=== PATIENT | male | born 1980 | race Caucasian/White ===

== ENCOUNTER → 2019-05-09 08:54 | Outpatient (BNVA) | payer MEDICARE, SELFPAY | PROVIDERS: Family Provider Nurse Practitioner Family; Visit Provider Nurse Practitioner Family | DX: K92.1 Melena (principal) | CPT/HCPCS: G0328 ==

== ENCOUNTER 2019-05-17 07:12 | Day surgery (SDC) | payer MEDICARE, SELFPAY ==
[2019-05-17 07:59] VITALS: BP 119/73; PULSE 59; RESP 18; TEMP 36.3; O2SAT 98
[2019-05-17 08:20] VITALS: BMI 31.0
--- NOTE | 2019-05-17 08:54 | P.ANES_ITS ---
Pre-Anesthetic Assessment Pre-Anesthetic Assessment: Height/Weight: Height 1.75 m Weight 95.254 kg Temp Pulse Resp BP Pulse Ox 97.3 F L 59 L 18 119/73 98 05/17/19 07:59 05/17/19 07:59 05/17/19 07:59 05/17/19 07:59 05/17/19 07:59 Preop Diagnosis: rectal bleeding, Nausea Proposed Procedure: Operation Date: 05/17/19 09:30 Proposed Procedures p EGD/COLON(Not Applicable) - Ren Rodrigues MD s Colonoscopy 47484,K62.5(Not Applicable) - Ren Rodrigues MD Familial anesthetic complications: denies Was Beta [place] taken within 24 hours: N/A Last intake: Intake Last Liquid Date 05/16/19 Last Liquid Time 20:40 Last Solid Date 05/15/19 Last Solid Time 20:30 Social: Social History: Tobacco (6 cig/day) Exam: Pre-Anes Outpt Exam: alert, oriented x 3, clear to auscultation bi laterally and regular rate & rhythm Airway: Submandibular: WNL Cervical ROM: WNL MP: 2 (full norton) Dentition: Other Additional comments: edentulous History/ROS: No significant history except as noted Pulmonary: Pulmonary: None reported CV/HEM: CV/HEM: Murmur (as a child) : : None reported Hepatic: Hepatic: None reported GI: GI: GERD Metabolic: Metabolic: None reported Musc/skel: Musc/skel: Lower Back Pain (sciatica; one steroid injection 2 years ago) Neuropsych: Neuropsych: Anxiety (PTSD) Anesthetic Plan: ASA status: II Anesthesia: Anesthesia Evaluation and MAC Risk of > 500 ml blood loss (7ml/kg in children): No PFSH Anesthesia PFSH: Medical History (Updated 05/10/19 @ 15:40 by Ren Rodrigues MD) Rectal bleeding (Acute) Social History Smoking and tobacco status: current every day smoker cigarettes Quit status (tobacco): has tried quititng Second hand smoke exposure: No Alcohol intake: current Alcohol intake frequency: holidays/special occasions only Alcohol type: beer Desire information about alcohol rehabilitation?: No Desire information about substance/drug rehabilitation?: No Adopted: No Caregiver/support person: Yes Lives independently: Yes Household members: spouse Housing: House Marital status: Number of children: 4 Highest education level completed: High School Graduate service: No Current occupational status: disabled Current occupational exposures/hazards: No Pets and animals: No History of recent travel: No Leisure activites: hunting and fishing Sexually active: Yes Current gender identity: Male Dena/Judaism: Zoroastrianism Special dena needs: No Agree to transfusion: Yes Financial difficulty paying for basics: Decline to Answer Data Anesthesia Cardiac Studies: No Data to Display
[2019-05-17] MEDS: sodium chloride 0.9% 1,000 ML 30 ML (09:03)
--- NOTE | 2019-05-17 09:30 | PM.HPUD ---
H&P update H&P Update: DATE OF SURGERY/PROCEDURE: 05/17/19 DATE H&P PERFORMED: 05/13/19 H&P UPDATE INFORMATION: H&P completed within last 30 days and No changes to prior documentation PRIMARY INDICATION FOR PROCEDURE: Bleeding per rectum PLANNED PROCEDURE: Operation Date: 05/17/19 09:30 Proposed Procedures p EGD/COLON(Not Applicable) - Ren Rodrigues MD s Colonoscopy 04671,K62.5(Not Applicable) - Ren Rodrigues MD Full H&P Perinent History: Medical/Surgical History: Medical History (Updated 05/10/19 @ 15:40 by Ren Rodrigues MD) Rectal bleeding (Acute) Family History: Family History (Updated 05/10/19 @ 15:24 by Lexy New RN) Grandmother Diabetes Other Cancer Denies family history of Anesthesia complication Bleeding disorder Social History: Social History Smoking and tobacco status: current every day smoker cigarettes Quit status (tobacco): has tried quititng Second hand smoke exposure: No Alcohol intake: current Alcohol intake frequency: holidays/special occasions only Alcohol type: beer Desire information about alcohol rehabilitation?: No Desire information about substance/drug rehabilitation?: No Adopted: No Caregiver/support person: Yes Lives independently: Yes Household members: spouse Housing: House Marital status: Number of children: 4 Highest education level completed: High School Graduate service: No Current occupational status: disabled Current occupational exposures/hazards: No Pets and animals: No History of recent travel: No Leisure activites: hunting and fishing Sexually active: Yes Current gender identity: Male Dena/Methodist: Anabaptist Special dena needs: No Agree to transfusion: Yes Financial difficulty paying for basics: Decline to Answer
[2019-05-17 09:50] VITALS: BP 95/75; PULSE 80; RESP 16; TEMP 36.2; O2SAT 91
--- NOTE | 2019-05-17 10:03 | ANE.PACU ---
 Inpatient post-anesthesia follow up: Airway intact: Yes Vital signs: Temperature 97.1 F Pulse Rate [Left A pical] 80 Respiratory Rate 16 Blood Pressure [Le ft Arm] 95/75 Pulse Oximetry 91 Oxygen Delivery Me thod Nasal Cannula Oxygen Flow Rate 3 Fraction of Inspir ed Oxygen Hydration adequate: Yes Nausea and vomiting: No Pain level: 0 Mental status: Baseline
[2019-05-17 10:06] VITALS: BP 111/73; PULSE 67; RESP 18; O2SAT 98
[2019-05-18 06:53] LABS: H. Pylori / CLO Test Positive
== END 2019-05-17 10:28 | disposition home or self-care (01) ==
PROVIDERS: Family Provider Nurse Practitioner Family; PCP Nurse Practitioner Family; Visit Provider Surgery
PROC: 0DJ08ZZ Inspection of Upper Intestinal Tract, Via Natural or Artificial Opening Endoscopic (ICD-10-PCS; CPT 43235; principal; 2019-05-17 09:30)
PROC: 0DJD8ZZ Inspection of Lower Intestinal Tract, Via Natural or Artificial Opening Endoscopic (ICD-10-PCS; CPT 45378; 2019-05-17 09:30)
DX: K92.1 Melena (principal); K21.9 Gastro-esophageal reflux disease without esophagitis; K29.70 Gastritis, unspecified, without bleeding; K29.80 Duodenitis without bleeding; Z83.3 Family history of diabetes mellitus; F17.210 Nicotine dependence, cigarettes, uncomplicated
CPT/HCPCS: 12345; 43239; 45378; 87077; 96365; J2704; J7030

== ENCOUNTER 2021-02-04 09:21 | Outpatient (CLI) | payer MEDICARE, SELFPAY ==
--- NOTE | 2021-02-04 09:26 | CT_ITS ---
WS: [id number] CT scan of the head, 02/04/2021 Clinical Data: R51.9 - Headache, unspecified Comparison: None. DLP: 992.[address] scans at [facility] use at least one of these dose optimization techniques: automated e xposure control; mA and/or kV adjustment per patient size (includes targeted exams where dose is matc hed to clinical indication); or iterative reconstruction. Findings: The ventricular system is normal without shift. No recent infarct or hemorrhage is seen. There are no abnormal intracerebral masses. The cerebellum and brainstem are not remarkable. Bony windows of the skull and skull base show no fractures or erosions. The mastoid air cells, internetworking technician al auditory canals, sella turcica, intraorbital contents, and paranasal sinuses are unremarkable. CT/CT head wo con* [id number] Impression: Negative CT scan of the head
== END 2021-02-04 09:22 | disposition home or self-care (01) ==
PROVIDERS: PCP Nurse Practitioner Family; Visit Provider Nurse Practitioner Family
DX: R51.9 Headache, unspecified (principal); G89.29 Other chronic pain
CPT/HCPCS: 70450; 80053; 85025; 86140

== ENCOUNTER 2021-11-19 08:50 | Outpatient (CLI) | payer MEDICARE, SELFPAY ==
[2021-11-19 09:35] VITALS: BMI 27.1
--- NOTE | 2021-11-19 09:36 | ECG_ITS ---
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 Interpretive Statements NAME OF STUDY: DOBUTAMINE SESTAMIBI STRESS TEST INDICATION: Hr, PROCEDURE: At the baseline, the blood pressure was with a heart rate of. The electrocardiogram showed sinus bradycardia with a rate of 50 bpm. The dobutamine was infused over a period of 15 minutes and 20 seconds. The maximum heart rate obtained was 156 (87% of the maximum predicted heart rate). The blood pressure at that time was 190/65 mmHg. The patient did not have any chest pain or any significant electrocardiogram changes with the dobutamine infusion. The physical examination remained unchanged. No arrhythmias were seen on the monitor. During the recovery phase, the patient did not have any specific symptoms. The blood pressure at the end of the recovery phase was 138/99 with a heart rate of 98 per minute. CONCLUSION: 1. Normal EKG response review to infusion 2. No A/V induced chest pain or cardiac arrhythmia 3. Normal blood pressure and the heart rate response to dobutamine fusion 4. Sestamibi/Sestamibi perfusion scan pending; see separate report. Electronically Signed On 11-21-2021 11:56:38 CDT by Ashley Nguyen M.D. [email or web address]
--- NOTE | 2021-11-19 09:37 | NMCV_ITS ---
NM benny perf SPECT r/s* [id number] Getachew Eaton Age: 41 Gender: M : 1980 Exam Date: 11/19/2021 09:37 Ordering Phys: Ade Young-C PROPERTY MANAGEMENT ACCOUNTANT Technologist: ANGIE Braxton Exam Location: [facility] Indications: CHEST PAIN STRESS TEST Please see separate stress test report in [facility] for full findings IMAGE PROTOCOL Rest/Stress 1 Dobutamine Day Radiopharmaceutical Dose (mCi) Administration Site Administered by Rest: Tc-99m IV ANGIE Dennis Sestamibi Stress:Tc-99m 32.5 IV ANGIE Dennis Sestamimicheline Rest: 19-Nov-2021 60 Discovery 630 Stress: 19-Nov-2021 30 Discovery 630 Radiopharmaceutical was injected at 85 % maximum heart rate. Images obtained in supine and prone position. SPECT RESULTS Technical Quality: Excellent Raw Data Analysis: Normal Image Corrections: No attenuation or motion correction applied Summed Stress Score: 0 Summed Rest Score: 1 Summed Difference Score: 0 PERFUSION FINDINGS Fairly uniform myocardial tracer uptake. No significant perfusion abnormalities FUNCTIONAL RESULTS (calculated via Gated SPECT) Stress Image LV EF (%): 69 Stress EDV (mL):121 TID: 0.91 Stress ESV (mL):37 FUNCTIONAL FINDINGS: Segmental wall motion analysis revealing no gross wall motion abnormalities IMPRESSIONS 1. Myocardial perfusion imaging revealing fairly uniform myocardial tracer uptake. 2. Normal LV ejection fraction of 69%. 3. Segmental wall motion analysis revealing no gross wall motion abnormalities 4. Normal LV volume Low probability for coronary ischemia, based on the above findings Dr Ashley Nguyen MD FACC (Electronically Signed) Final Date: 19 November 2021 21:14 S
[2021-11-19] MEDS: DOBUTtamine 200 MG in sodium chloride 0.9% 34 ML 13 MG IV (10:58)
[2021-11-19] MEDS: atropine 0.1 mg/mL Syr 10 mL 0.5 MG IVP (11:07)
[2021-11-19] MEDS: metoprolol tartrate 1 mg/1 mL SDV 5 mL 5 MG IV ×2 (11:16→11:25)
[2021-11-19 11:46] VITALS: BP 128/74; PULSE 98
== END 2021-11-19 08:51 | disposition home or self-care (01) ==
LOC: CDL 08:52
PROVIDERS: PCP Nurse Practitioner Family; Visit Provider Nurse Practitioner Family
DX: R07.9 Chest pain, unspecified (principal)
CPT/HCPCS: 78452; 93017; A9500; J0461; J1250; J3490; J7050

== ENCOUNTER 2021-11-22 13:32 | Emergency (ER) | payer MEDICARE, SELFPAY ==
[2021-11-22 14:16] VITALS: BP 114/69; PULSE 65; RESP 16; TEMP 36.8; O2SAT 99; BMI 27.1
--- NOTE | 2021-11-22 15:21 | CTR_ITS ---
PROCEDURE INFORMATION: Exam: CT Head Without Contrast Exam date and time: 11/22/2021 4:01 PM Age: 41 years old Clinical indication: Pain; Headache not specified; Patient HX: C/O ALLEN post stress test TECHNIQUE: Imaging protocol: Computed tomography of the head without contrast. Radiation optimization: All CT scans at this facility use at least one of these dose optimization techniques: automated exposure control; mA and/or kV adjustment per patient size (includes targeted exams where dose is matched to clinical indication); or iterative reconstruction. COMPARISON: CT head wo con* [id number] 02/04/2021 9:36 AM RADIATION DOSE METRICS: Total DLP (mGy-cm): 928.98 FINDINGS: Brain: No hemorrhage. No edema. No significant white matter disease. No mass effect. Cerebral ventricles: No ventriculomegaly. Paranasal sinuses: Visualized sinuses are unremarkable. No fluid levels. Mastoid air cells: Visualized mastoid air cells are well aerated. Bones/joints: Unremarkable. No acute fracture. Soft tissues: Unremarkable. CT/CT head wo con* [id number] IMPRESSION: No acute intracranial abnormality.
[2021-11-22] MEDS: ketorolac 30 mg/mL INJ 15 MG IVP (15:35)
[2021-11-22] MEDS: dexamethasone 10 mg/mL INJ IVP (15:37)
[2021-11-22] MEDS: diphenhydrAMINE 50 mg/mL SDV 1mL IVP (15:37)
[2021-11-22] MEDS: sodium chloride 0.9% 1,000 ML 999 ML IV (15:38)
--- NOTE | 2021-11-22 17:21 | ED_ITS ---
HPI - Headache General: Chief Complaint: Headache Stated Complaint: Headpain post stress test Time Seen by Provider: 11/22/21 14:20 History of Present Illness: 41 yo male patient presents to ER with c/o Migraine. Pt states he had a stress test 3 days ago and developed headache during that time and has continued now for 3 days. Pt states this is normal for his headache but they normal dont last this long. Pt c/o nausea and blurred vision. Pt denies any trauma or injury Associated symptoms: Deny chest pain, confusion, diaphoresis, fever(s), lightheadedness, malaise, pre-syncope, rash, syncope or vomiting Review of Systems Const: Denies: fever(s), chills, body aches, change in appetite, change in weight, fatigue, malaise or diaphoresis Eyes: Denies: change in vision, blurry vision, blind spots, photophobia, eye discomfort, eye discharge, eye redness, floaters or seeing flashes ENMT: Denies: throat pain, uvular edema, enlarged tonsils, odynophagia, hoarseness, mouth pain, swelling of lips/tongue, oral sores, bleeding gums, dental pain, dry mouth, ear or mastoid pain, ear discharge, change in hearing, tinnitus, disequilibrium, nasal discharge, nasal congestion, post nasal drip or sinus pain Card: Denies: chest pain, palpitations, irregular heart rhythm, edema, swel ling of feet/ankles, lightheadedness, syncope, pre-syncope, dyspnea on exertion, orthopnea, leg pain with exertion or acrocyanosis Resp: Denies: dyspnea, productive cough, non-productive cough, wheezing, stridor, pain on inspiration, change in phlegm color, hemoptysis or chest congestion GI: Denies: abdominal pain, vomiting, hematemesis, dysphagia, diarrhea, constipation, GI cramping, change in bowel habits or rectal pain : Denies: flank pain, dysuria, urinary frequency, urinary urgency, urinary hesitancy or hematuria Musc: Denies: neck pain, back pain, extremity pain, extremity swelling, joint pain, joint swelling, joint redness, joint warmth or deformity Skin/Breast: Denies: rash, pruritus, erythema, sores, new lesions, changes in skin color or dry skin Neuro: Denies: numbness in extremities, weakness in extremities, sensory changes, lack of coordination, difficulty walking, frequent falls, dizziness, vertigo, confusion, behavioral changes, Slurred speech present, difficulty communicating thoughts or seizure-like activity Psych: Denies: anxiety, depression, suicidal ideation or homicidal ideation Endo: Denies: polyuria, polydipsia, tired all the time, cold intolerance, excessive sweating, flushing, hot flashes or heat intolerance Keenan/Lymph: Denies: easy bruising, easy bleeding, petechiae, purpura, enlarged lymph nodes or tender lymph nodes All/Imm: Denies: urticaria, throat swelling, tongue swelling, facial swelling, acute wheezing or itchy eyes PFSH ED PFSH: Medical History Chronic headaches Rectal bleeding Family History Grandmother Diabetes CAD (coronary artery disease) Other Cancer Denies family history of Anesthesia complication Bleeding disorder Social History Smoking and tobacco status: never smoked Quit status (tobacco): has tried quititng Second hand smoke exposure: No Alcohol intake: current Alcohol intake frequency: holidays/special occasions only Alcohol type: beer Desire information about alcohol rehabilitation?: No Desire information about substance/drug rehabilitation?: No Adopted: No Caregiver/support person: Yes Lives independently: Yes Household members: spouse Housing: House Marital status: Number of children: 4 Highest education level completed: High School Graduate service: No Current occupational status: disabled Current occupational exposures/hazards: No Pets and animals: No History of recent travel: No Leisure activites: hunting and fishing Sexually active: Yes Current gender identity: Male Dena/Yarsani: Holiness Special dena needs: No Agree to transfusion: Yes Financial difficulty paying for basics: Decline to Answer Physical Exam Const: COMMON NORMALS: no acute distress, patient oriented x3, healthy appearing, alert and well nourished GENERAL APPEARANCE: cooperative, comfortable, well kempt and well developed; not ill appearing ORIENTATION/CONSCIOUSNESS: Yes awake, Yes oriented to person, Yes oriented to place and Yes oriented to time HENMT: COMMON NORMALS: normocephalic, atraumatic, hearing grossly normal bilaterally, external ears normal, EAC's normal, TM's normal bilaterally, Normal external nose present, Normal nasal mucous membranes and turbinates present and moist oral mucous membranes HEAD & SCALP: normal to inspection, normocephalic and atraumatic FACE & SINUS: normal facial exam, sinuses nontender and face symmetric NOSE: Normal external nose present, Normal nares present, Normal nasal mucous membranes and turbinates present, No nasal discharge present and Abnormal external nose present EXTERNAL EAR: Yes external ears normal and Yes mastoids normal EXTERNAL AUDITORY CANAL: EAC's normal TYMPANIC MEMBRANE: TM's normal bilaterally MOUTH: Normal oral and palatal mucosa present, lip normal, tongue normal and Normal salivary glands and ducts present THROAT: no uvular edema Eye: COMMON NORMALS: Equal, round and reactive pupils present, EOMs intact bilaterally, conjunctivae normal and no scleral icterus GENERAL EYE: appearance normal, both eyes and all related structures EYELID: eyelids normal CONJUNCTIVA: Yes conjunctivae normal SCLERA: sclerae normal CORNEA: Yes corneas normal PUPIL: Yes Equal, round and reactive pupils present Neck/C-Spine: COMMON NORMALS: full ROM, no lymphadenopathy, supple, no meningeal signs, no JVD and Thyroid normal GENERAL: Yes normal visual inspection and Yes trachea midline THYROID: Thyroid normal CERVICAL SPINE: Yes cervical ROM normal Lymph: LYMPHATIC: no lymphadenopathy noted and no lymphedema noted Chest: COMMONS NORMALS: normal inspection of the chest and normal palpation of entire chest wall Resp: COMMON NORMALS: normal respiratory effort, No retractions, No use of accessory muscles and clear to auscultation bilaterally EFFORT & INSPECTION: Yes able to speak in complete sentences and Yes symmetric chest movement AUSCULTATION: clear to auscultation bilaterally Cardio: COMMON NORMALS: no JVD, regular rate and regular rhythm RATE: regular rate RHYTHM: regular rhythm GI: COMMON NORMALS: Normal to inspection, nondistended, normoactive bowel sounds present, Soft to palpation, non-tender, No hepatosplenomegaly present, no masses and no bruits INSPECTION: Yes normal to inspection AUSCULTATION: Yes normoactive bowel sounds PALPATION: Yes Soft to palpation and Yes No hepatosplenomegaly present PERCUSSION: normal to percussion RECTAL EXAM: Yes deferred : COMMON NORMALS: Yes no CVA tenderness BLADDER/KIDNEY EXAM: Yes no CVA tenderness Back/Pelvis: COMMON NORMALS: no CVA tenderness, thoracic and lumbar spine normal to inspection, no thoracic nor lumbar tenderness and thoraco-lumbar ROM normal THORACIC SPINE/UPPER BACK: Yes normal to inspection LUMBAR SPINE/LOWER BACK: Yes normal to inspection Extremity: COMMON NORMALS: normal to inspection, full ROM and capillary refill normal GENERAL: Yes normal exam except as noted Neuro: COMMON NORMALS: patient oriented x3, CN's II-XII intact bilaterally, moves all extremities, no focal motor deficits, no sensory deficits noted, deep tendon reflexes 2+ bilaterally and gait normal SENSORIUM/ORIENTATION: Yes alert, Yes oriented to person, Yes oriented to place and Yes oriented to time MENINGEAL SIGNS: Yes no meningeal signs CRANIAL NERVES: Yes CN normal except as noted SPEECH: speech normal GAIT: Yes Normal gait present SENSORY EXAM: Yes extremities MOTOR EXAM: 5/5 motor strength present throughout Psych: COMMON NORMALS: mental status grossly normal, Normal thought process present, cooperative, normal affect, speech normal, activity/motor behavior normal, denies hallucinations, denies homicidal ideation and denies suicidal ideation APPEARANCE: Yes grossly normal and Yes well kempt ATTITUDE: Yes calm ACTIVITY/MOTOR BEHAVIOR: Yes appropriate eye contact SPEECH: Yes normal speech THOUGHT PROCESS: Normal thought process present THOUGHT CONTENT: Yes Normal thought content present ATTENTION/CONCENTRATION: Yes attention grossly intact MEMORY/COGNITION: Yes memory grossly intact INSIGHT: Good insight present (Psych) JUDGEMENT: Good judgement present (Psych) Skin: COMMON NORMALS: no rashes or lesions noted, no wounds, turgor normal, no jaundice, no petechiae and no mottling GENERAL SKIN EXAM: no rashes or lesions noted and turgor normal Course Vital Signs: Vital signs: Vital Signs Temperature 98.2 F 11/22/21 14:16 Pulse Rate 65 11/22/21 14:16 Respiratory Rate 16 11/22/21 14:16 Blood Pressure 114/69 11/22/21 14:16 Pulse Oximetry 99 11/22/21 14:16 MDM - Headache Medical Decision Making Patient is well appearing non toxic and in no acute distress. 41 yo male patient presents to ER with c/o Migraine. Pt states he had a stress test 3 days ago and developed headache during that time and has continued now for 3 days. Pt states this is normal for his headache but they normal dont last this long. Pt c/o nausea and blurred vision. Pt denies any trauma or injury Pt has no red flag findings. CT head reveals no acute findings. This is likely related to sympathetic over stimulation secondary to stress test. Pt had good clinical improvement after IV fluids, decadron, toradol and benadryl. Pt is medically stable for discharge. Case reviewed with Dr. Quevedo Lab Data Radiology Impressions Head CT 11/22/21 15:21 IMPRESSION: No acute intracranial abnormality. Discharge Plan Discharge Patient Disposition: Home Clinical Impression: Migraine Qualifiers: Migraine type: unspecified Condition: Stable Discharge Orders: Discharge ED (Routine); Ordered 11/22/21 Ordered By: Kandy Ding Referrals: Ade Young FNP [Primary Care Provider] - 1-3 days (as needed) Discharge Diet: Advance as tolerated Discharge Activity: Increase activity as tolerated Patient Instructions: Headache - Migraine (Adult), Opioid Safety Activity Restrictions/Additional Instructions: Please return to the ER if symptoms that suddenly change or get worse a headache after a bowel movement, coughing, or sneezing a headache accompanied by vision changes, sleepiness, seizures, difficulty speaking, fever, stiff neck, confusion, dizziness, numbness, weakness, or a loss of consciousness Coding Level of Care Code ED Metallurgical Or Materials Technician for Ludmila Banks
== END 2021-11-22 17:35 | disposition home or self-care (01) ==
PROVIDERS: Emergency Provider Registered Nurse; PCP Nurse Practitioner Family
DX: G43.909 Migraine, unspecified, not intractable, without status migrainosus (principal)
CPT/HCPCS: 70450; 96361; 96374; 96375; 99285; J1100; J1200; J1885; J7030

== ENCOUNTER 2024-12-12 16:43 | Outpatient (CLI) | payer MEDICARE, SELFPAY ==
--- NOTE | 2024-12-12 17:00 | XR_ITS ---
WS: [id number] Left elbow, AP and lateral views, 12/12/2024 Clinical Data: LEFT ELBOW PAIN,UNSPECIFIED INJURY Comparison: None. Findings: No fractures or dislocations are seen. The radial head is normal. The soft tissues are unremarkable. XR/XR elbow LT 2V [id number] Impression: Negative left elbow.
== END 2024-12-12 16:44 | disposition home or self-care (01) ==
PROVIDERS: PCP Nurse Practitioner Family; Visit Provider Nurse Practitioner Adult Health
DX: S59.902A Unspecified injury of left elbow, initial encounter (principal); X58.XXXA Exposure to other specified factors, initial encounter
CPT/HCPCS: 73070